=== PATIENT | male | born 1980 | race Caucasian/White ===

== ENCOUNTER 2023-11-29 04:02 | Inpatient (IN) ==
--- NOTE | 2023-11-29 04:51 | Emergency Department Note ---
Impression & Plan Perirectal cellulitis, Hyperglycemia due to type 2 diabetes mellitus Admit to the [facility] on IV antibiotics ED Provider Note NAME: BALJEET DOTSON AGE: 43 SEX: Male INFORMANT: Patient ED PROVIDER(S): Yazmin Corbett DO CHIEF COMPLAINT: Rectal pain PLAN: Disposition: Admit to the [facility] MEDICAL DECISION MAKING: This is a 43-year-old male patient presents to the emergency department with moderate to severe pain in the rectum with drainage coming from the wound about the rectum. Patient was diagnosed with diabetes approximately 5 years ago but has not had treatment for it since that time. Laboratory studies show a blood glucose of 369 but no significant leukocytosis. Hemoglobin is 13.5. Renal function is normal. Sodium is 134. Patient went for CT scan of the abdomen/pelvis to rule out perirectal abscess. No specific abscess was noted but the patient does have significant induration about the left buttocks, perirectal region and perineum consistent with significant cellulitis. Care/management discussed with: manager sales support and [facility] Triage Nursing notes: Reviewed and agree with them. Vital Signs: reviewed and remarkable for hypertension and tachycardia Chronic Medical/Social Conditions affecting care: Patient was diagnosed with diabetes approximately 5 years ago and only took treatment for a very short period of time and has not had any treatment for the diabetes since then. Differential Diagnosis: Pilonidal cyst, perirectal abscess, Joaquim's gangrene, cellulitis Diagnostics, independently interpreted by me: Cardiac Monitoring: Sinus tachycardia at 110 Imaging studies: CT scan of the abdomen/pelvis-as per stat rad HPI: 43 year old Male arrives for evaluation of rectal pain. Patient noted some pain about his rectum approximately 5 days ago. He then noticed some swelling to the left butt buttocks surrounding the rectum. He then noted that it popped and was draining to the point that he was having to change the dressing every 1- 2 hours. 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 Pupils are equal, round, and reactive to light. Extraocular eye muscles are intact, and sclera are anicteric. Nose - moist nasal mucosa without discharge. Mouth - moist buccal mucosa. Oropharynx is nonerythematous and there is no tonsillar exudate or edema noted. Neck: Supple; no cervical lymphadenopathy Heart: Tachycardic rate and regular rhythm. There is a normal S1 and S2 with no murmurs, clicks, or gallops appreciated. Lungs: Clear to auscultation bilaterally with no wheezes, rales, or rhonchi. Abdomen: Soft, completely nontender, nondistended, with good bowel sounds. There are no palpable pulsatile masses or hepatosplenomegaly. There is no guarding, rigidity, or rebound noted. Extremities: No evidence of cyanosis, clubbing, or edema. There are easily palpable peripheral pulses. Skin: warm and dry with good turgor and no rashes. Buttocks: Very large perirectal area of induration, warmth and erythema noted on the left buttocks extending about the rectum into the perineum to the base of the penis. I could not see a specific area of opening or drainage. Emergency department treatment: media monitor, IV normal saline bolus, IV Rocephin, IV Flagyl Emergency department course: Patient was evaluated in room B3 a complete history and physical was performed. An IV lock was initiated and labs were drawn as above. Blood cultures were obtained. An order was placed for continuous cardiac monitoring. The patient was in a sinus tachycardia at a rate of 110. The patient was bolused with IV normal saline solution once he was noted to be significantly hyperglycemic. He was given a dose of IV Rocephin and IV Flagyl. [facility] care. Past Med/Surg History Medical History T2DM (type 2 diabetes mellitus) Surgical History No pertinent past surgical history Family History Mother Diabetes Father Renal cell carcinoma Brother Diabetes MRSA (methicillin resistant Staphylococcus aureus) carrier Social History Smoking Status: Never smoker Hx Alcohol Use: No Hx Substance Use: No Preferred Language: Hungarian marital status: Single Current Living Situation: Alone current occupational status: employed current occupation: [employer], [employer] Feels Safe at Home: Yes Allergies Allergies Allergy/AdvReac Type Severity Reaction Status Date / Time No Known Allergies Allergy Verified 11/29/23 05:06 Home Meds Home Medications Medication Instructions Recorded Confirmed multivitamin 1 tab PO DAILY 11/29/23 11/29/23 Results & Data (ED) Vital Signs Vital Signs - 24 hr 11/29/23 04:05 11/29/23 05:05 11/29/23 05:06 Temperature 37 C Temperature Source Temporal Artery Scan Pulse Rate 110 H 104 H Pulse Rate [Finger] 102 H Pulse Rhythm [Finger] Pulse Strength [Finger] Respiratory Rate 18 16 Respiratory Effort / Characteristics Non-Labored Spontaneous Non-Labored Spontaneous Respiratory Depth Normal Normal Respiratory Pattern Regular Blood Pressure 207/107 H Blood Pressure [Left Arm] 198/111 H Blood Pressure Mean 140 Blood Pressure Mean [Left Arm] 140 Blood Pressure Position [Left Arm] Pulse Oximetry 100 100 Oxygen Delivery Method Room Air Room Air Sepsis Recent Fever Within 48 Hours No Sepsis New/Unexplained Change in Mental Status No Sepsis Action Taken by Nursing No Action Required 11/29/23 05:06 11/29/23 07:00 Temperature 37 C Temperature Source Temporal Artery Scan Pulse Rate Pulse Rate [Finger] 97 H Pulse Rhythm [Finger] Regular Pulse Strength [Finger] Normal Respiratory Rate 16 Respiratory Effort / Characteristics Non-Labored Spontaneous Respiratory Depth Normal Respiratory Pattern Regular Blood Pressure Blood Pressure [Left Arm] 186/108 H Blood Pressure Mean Blood Pressure Mean [Left Arm] 134 Blood Pressure Position [Left Arm] Lying Pulse Oximetry 100 Oxygen Delivery Method Room Air Room Air Sepsis Recent Fever Within 48 Hours Sepsis New/Unexplained Change in Mental Status Sepsis Action Taken by Nursing Laboratory Data 11/29/23 04:50 11/29/23 04:50 Lab Results 11/29/23 11/29/23 11/29/23 Range/Units 04:50 07:06 07:10 WBC 10.75 (4.8-10.8) K/ul RBC 4.56 L (4.70-6.10) M/uL Hgb 13.5 L (14.0-18.0) g/dl Hct 37.3 L (42.0-52.0) % MCV 81.8 (80.0-100.0) fL MCH 29.6 (25.0-34.0) pg MCHC 36.2 H (32.0-36.0) g/dL RDW Std Deviation 34.0 L (36.4-46.3) fL RDW Coeff of Rob 11.6 (11.5-14.5) % Plt Count 356 (130-400) K/uL MPV 9.8 (9.4-12.4) fL Immature Gran % (Auto) 0.5 % Neut % (Auto) 64.2 % Lymph % (Auto) 20.5 % [place] % (Auto) 11.3 % Eos % (Auto) 2.9 % Baso % (Auto) 0.6 % Neut # (Auto) 6.92 H (1.40-6.50) K/uL Lymph # (Auto) 2.20 (1.20-3.40) K/uL [place]lin # (Auto) 1.21 H (0.11-0.59) K/uL Eos # (Auto) 0.31 (0.00-0.50) K/uL Baso # (Auto) 0.06 (0.00-0.20) K/uL Immature Gran # (Auto) 0.05 (0.01-0.20) K/uL Sodium 134 L (136-145) mmol/L Potassium 4.0 (3.5-5.1) mmol/L Chloride 95 L (98-107) mmol/L Carbon Dioxide 27 (21-32) mmol/L Anion Gap 12 H (3-11) BUN 19 (6-23) mg/dl Creatinine 0.98 (0.6-1.4) mg/dl Est Cr Clr Drug Dosing 101.4 ml/min Est GFR ( Amer) 107.5 ml/min Est GFR (Non-Af Amer) 92.7 ml/min BUN/Creatinine Ratio 19.4 (10-20) Glucose 369 H* (70-99(Fasting)) mg/dl Lactate 1.3 (0.4-2.0) mmol/L Calcium 9.2 (8.6-10.3) mg/dl Total Bilirubin 0.3 (0.2-1.0) mg/dl AST 14 (13-39) U/L ALT 12 (7-52) U/L Alkaline Phosphatase 129 H (34-104) U/L Total Protein 7.8 (6.0-8.3) gm/dl Albumin 4.0 (3.4-5.0) gm/dl Globulin 3.8 (2.5-4.0) gm/dl Albumin/Globulin Ratio 1.1 (0.9-2) Lipase 18 (11-82) U/L Procalcitonin < 0.05 (0-0.5) ng/ml Urine Color Urine Appearance (Clear) Urine pH (4.5-7.5) Ur Specific [place] (1.000-1.030) Urine Protein (Negative) Urine Glucose (UA) (Negative) Urine Ketones (Negative) Urine Blood (Negative) Urine Nitrite (Negative) Urine Bilirubin (Negative) Urine Urobilinogen (Negative) Ur Leukocyte Esterase (Negative) Urine WBC (Auto) (0-5) /hpf Urine RBC (Auto) (0-4) /hpf U Hyaline Cast (Auto) (0-5) /lpf U Epithel Cells (Auto) (0-5) /lpf Urine Bacteria (Auto) (Negative) 11/29/23 Range/Units 08:20 WBC (4.8-10.8) K/ul RBC (4.70-6.10) M/uL Hgb (14.0-18.0) g/dl Hct (42.0-52.0) % MCV (80.0-100.0) fL MCH (25.0-34.0) pg MCHC (32.0-36.0) g/dL RDW Std Deviation (36.4-46.3) fL RDW Coeff of Rob (11.5-14.5) % Plt Count (130-400) K/uL MPV (9.4-12.4) fL Immature Gran % (Auto) % Neut % (Auto) % Lymph % (Auto) % [place] % (Auto) % Eos % (Auto) % Baso % (Auto) % Neut # (Auto) (1.40-6.50) K/uL Lymph # (Auto) (1.20-3.40) K/uL [place]lin # (Auto) (0.11-0.59) K/uL Eos # (Auto) (0.00-0.50) K/uL Baso # (Auto) (0.00-0.20) K/uL Immature Gran # (Auto) (0.01-0.20) K/uL Sodium (136-145) mmol/L Potassium (3.5-5.1) mmol/L Chloride (98-107) mmol/L Carbon Dioxide (21-32) mmol/L Anion Gap (3-11) BUN (6-23) mg/dl Creatinine (0.6-1.4) mg/dl Est Cr Clr Drug Dosing ml/min Est GFR ( Amer) ml/min Est GFR (Non-Af Amer) ml/min BUN/Creatinine Ratio (10-20) Glucose (70-99(Fasting)) mg/dl Lactate (0.4-2.0) mmol/L Calcium (8.6-10.3) mg/dl Total Bilirubin (0.2-1.0) mg/dl AST (13-39) U/L ALT (7-52) U/L Alkaline Phosphatase (34-104) U/L Total Protein (6.0-8.3) gm/dl Albumin (3.4-5.0) gm/dl Globulin (2.5-4.0) gm/dl Albumin/Globulin Ratio (0.9-2) Lipase (11-82) U/L Procalcitonin (0-0.5) ng/ml Urine Color Yellow Urine Appearance Clear (Clear) Urine pH 6.0 (4.5-7.5) Ur Specific [place] 1.044 H (1.000-1.030) Urine Protein 1+ H (Negative) Urine Glucose (UA) 3+ H (Negative) Urine Ketones 2+ H (Negative) Urine Blood 1+ H (Negative) Urine Nitrite Negative (Negative) Urine Bilirubin Negative (Negative) Urine Urobilinogen Negative (Negative) Ur Leukocyte Esterase Negative (Negative) Urine WBC (Auto) 1-5 (0-5) /hpf Urine RBC (Auto) 0-4 (0-4) /hpf U Hyaline Cast (Auto) 0 (0-5) /lpf U Epithel Cells (Auto) 5-10 H (0-5) /lpf Urine Bacteria (Auto) Negative (Negative) Administered Medications Lactated Ringer's (Lr) 1,000 mls @ 15 mls/hr IV .Q24H ABHIJIT Stop: 12/29/23 13:14 Last Infusion: 11/29/23 14:27 Dose: Infused Documented By: Admin: 11/29/23 13:07 Dose: 15 mls/hr Documented By: FIDEL Discontinued Medications Sodium Chloride (Nss) 1,000 mls @ 999 mls/hr IV .Q1H1M ONE Stop: 11/29/23 07:17 Last Infusion: 11/29/23 07:29 Dose: Infused Documented By: Admin: 11/29/23 06:31 Dose: 999 mls/hr Documented By: ALCIDES Ceftriaxone Sodium (Rocephin) 1,000 mg in 50 mls @ 100 mls/hr IV NOW STA Stop: 11/29/23 07:58 Last Infusion: 11/29/23 09:19 Dose: Infused Documented By: Admin: 11/29/23 08:18 Dose: 100 mls/hr Documented By: FEDERICO Metronidazole (Flagyl) 500 mg in 100 mls @ 100 mls/hr IV NOW STA; Protocol Stop: 11/29/23 08:28 Last Infusion: 11/29/23 09:19 Dose: Infused Documented By: Admin: 11/29/23 08:18 Dose: 100 mls/hr Documented By: FEDERICO Ciprofloxacin (Cipro / D5w) 400 mg in 200 mls @ 100 mls/hr IV NOW STA; Protocol Stop: 11/29/23 11:50 Last Infusion: 11/29/23 12:45 Dose: Infused Documented By: Admin: 11/29/23 10:29 Dose: 100 mls/hr Documented By: MIKE Ioversol (Optiray 320 500ml) 100 ml IV ONCE ONE Stop: 11/29/23 06:22 Last Admin: 11/29/23 06:21 Dose: 78 ml Documented By: CHANCE Labetalol HCl (Labetalol Hcl Iv 5 Mg/Ml 20ml) 10 mg IV NOW STA Stop: 11/29/23 08:39 Last Admin: 11/29/23 09:44 Dose: 10 mg Documented By: FEDERICO Co-signed By: KEN Imaging Data Radiologist's Impression: Abdomen/Pelvis CT 11/29/23 04:[address] WITH IV CONTRAST CT DOSE: 1183.94 mGy.cm HISTORY: Rectal pain. eval for large perirectal abscess TECHNIQUE: Multiaxial CT images of the abdomen and pelvis were performed following the use of intravenous contrast. A dose lowering technique was utilized adhering to the principles of ALARA. COMPARISON STUDY: None. FINDINGS: The lung bases are clear. No pneumoperitoneum. No pneumatosis. No acute fractures identified. The liver, gallbladder, pancreas, spleen, adrenal glands, and kidneys are unremarkable. No hydronephrosis. The main portal vein is patent. No retroperitoneal lymphadenopathy. Normal caliber abdominal aorta. No pelvic lymphadenopathy or pelvic free fluid. There is mild left inguinal lymphadenopathy which may be reactive. Trace bilateral hydroceles are noted. Mild bladder wall thickening for the degree of distention. The prostate gland is mildly enlarged. A few colonic diverticula. No evidence for acute diverticulitis. [id number] fecal retention. No bowel wall thickening or obstruction. Normal appendix. Skin thickening and subcutaneous fat stranding within the left perianal location consistent with a cellulitis. There is an ill- defined focus of subcutaneous fluid/edema within the left perianal location best seen on image 422 which measures 5.9 x 1.5 cm. This is not completely loculated and therefore favors a phlegmon/developing abscess. No evidence for supralevator extension. IMPRESSION: 1. Skin thickening and subcutaneous fat stranding within the left perianal location consistent with a cellulitis. There is an ill-defined focus of subcutaneous fluid/edema within the left perianal location best seen on image 422 which measures 5.9 x 1.5 cm. This is not completely loculated and therefore favors a phlegmon/developing abscess. No evidence for supralevator extension. 2. Mild left inguinal lymphadenopathy. This is likely reactive. 3. Mild bladder wall thickening. This could be due to chronic outlet obstruction. Recommend correlation with urinalysis to exclude a cystitis. ACT 112: Negative or not required by law. Electronically signed by: Luan De La Cruz M.D. 11/29/2023 7:12 AM Discharge Plan Visit Data Chief Complaint: Rectal Pain Stated Complaint: NAUSEA,HEADACHE,SICK,SKIN ABCESS GETTING WORSE ED Provider: Yazmin Corbett Discharge Problem: Perirectal cellulitis, Hyperglycemia due to type 2 diabetes mellitus Patient Disposition: Admitted As Inpatient Discharge Instructions Interventions: ED Discharge Assessment Last Done: 11/29/23 12:52 Discharge Problem: Hyperglycemia due to type 2 diabetes mellitus Qualifiers: Diabetes mellitus fpc insulin use: without youth agent use Qualified Code(s): E11.65 - Type 2 diabetes mellitus with hyperglycemia
[2023-11-29 05:19] LABS: Basophils # (auto) 0.06 K/uL (0.00-0.20); Basophils % (auto) 0.6 %; Eosinophils # (auto) 0.31 K/uL (0.00-0.50); Eosinophils % (auto) 2.9 %; Hematocrit (blood only) 37.3 % (42.0-52.0); Hemoglobin 13.5 g/dl (14.0-18.0); Immature Granulocytes # (auto) 0.05 K/uL (0.01-0.20); Immature Granulocytes % (auto) 0.5 %; Lymphocytes % (auto) 20.5 %; Mean Corpuscular Hemoglobin 29.6 pg (25.0-34.0); Mean Corpuscular Hgb Conc 36.2 g/dL (32.0-36.0); Mean Corpuscular Volume 81.8 fL (80.0-100.0); Mean Platelet Volume 9.8 fL (9.4-12.4); Monocytes # (auto) 1.21 K/uL (0.11-0.59); Monocytes % (auto) 11.3 %; Neutrophils # (auto) 6.92 K/uL (1.40-6.50); Neutrophils % (auto) 64.2 %; Platelet Count 356 K/uL (130-400); RDW Coefficient of Variation 11.6 % (11.5-14.5); Red Blood Count 4.56 M/uL (4.70-6.10); White Blood Count 10.75 K/ul (4.8-10.8)
[2023-11-29 05:48] LABS: Albumin Globulin Ratio 1.1 (0.9-2); BUN Creatinine Ratio 19.4 (10-20); Bilirubin,Total 0.3 mg/dl (0.2-1.0); Calcium 9.2 mg/dl (8.6-10.3); Creatinine Clr Calc Pharmacy 101.4 ml/min; Est GFR (African American) 107.5 ml/min; Est GFR (Non-African American) 92.7 ml/min; Globulin 3.8 gm/dl (2.5-4.0); Total Protein 7.8 gm/dl (6.0-8.3)
[2023-11-29] MEDS ORDERED: SODIUM CHLORIDE 0.9% 1,000 ML IV ONE ×2 (06:17→06:52)
[2023-11-29] MEDS ORDERED: OPTIRAY 320 500ml IV ONE (06:21)
--- NOTE | 2023-11-29 07:14 | CT Scan Report ---
ABDOMEN AND PELVIS CT WITH IV CONTRAST CT DOSE: 1183.94 mGy.cm HISTORY: Rectal pain. eval for large perirectal abscess TECHNIQUE: Multiaxial CT images of the abdomen and pelvis were performed following the use of intrave nous contrast. A dose lowering technique was utilized adhering to the principles of ALARA. COMPARISON STUDY: None. FINDINGS: The lung bases are clear. No pneumoperitoneum. No pneumatosis. No acute fractures identifie d. The liver, gallbladder, pancreas, spleen, adrenal glands, and kidneys are unremarkable. No hydrone phrosis. The main portal vein is patent. No retroperitoneal lymphadenopathy. Normal caliber abdominal aorta. No pelvic lymphadenopathy or pelvic free fluid. There is mild left inguinal lymphadenopathy w hich may be reactive. Trace bilateral hydroceles are noted. Mild bladder wall thickening for the degr ee of distention. The prostate gland is mildly enlarged. A few colonic diverticula. No evidence for a cute diverticulitis. [id number] fecal retention. No bowel wall thickening or obstruction. Judit l appendix. Skin thickening and subcutaneous fat stranding within the left perianal location consiste nt with a cellulitis. There is an ill-defined focus of subcutaneous fluid/edema within the left peria nal location best seen on image 422 which measures 5.9 x 1.5 cm. This is not completely loculated and therefore favors a phlegmon/developing abscess. No evidence for supralevator extension. IMPRESSION: 1. Skin thickening and subcutaneous fat stranding within the left perianal location consistent with a cellulitis. There is an ill-defined focus of subcutaneous fluid/edema within the left perianal locat ion best seen on image 422 which measures 5.9 x 1.5 cm. This is not completely loculated and therefor e favors a phlegmon/developing abscess. No evidence for supralevator extension. 2. Mild left inguinal lymphadenopathy. This is likely reactive. 3. Mild bladder wall thickening. This could be due to chronic outlet obstruction. Recommend correlati on with urinalysis to exclude a cystitis. ACT 112: Negative or not required by law. Electronically signed by: Luan De La Cruz M.D. 11/29/2023 7:12 AM
[2023-11-29] MEDS ORDERED: cefTRIAXone SODIUM 1,000 MG/50 ML BAG IV STA (07:29)
[2023-11-29] MEDS ORDERED: metroNIDAZOLE 500 MG/100 ML BAG IV STA (07:29)
[2023-11-29] MEDS ORDERED: LABETALOL HCL IV 5 MG/ML 20ML IV STA (08:38)
--- NOTE | 2023-11-29 08:38 | History & Physical Report ---
Date of Service November 29, 2023 Assessment & Plan (1) Kristin-rectal abscess: (2) T2DM (type 2 diabetes mellitus): (3) HTN (hypertension): Plan This is a 43-year-old male who has significant past medical history of T2DM who presents to ED secondary to rectal abscess x 5 days. He has not seen a primary care provider in the last 5 years. Perirectal abscess Admit to med telemetry secondary to uncontrolled blood pressure --CT a/p: Skin thickening and subcutaneous fat stranding within the left perianal location consistent with a cellulitis. There is an ill-defined focus of subcutaneous fluid/edema within the left perianal location best seen on image 422 which measures 5.9 x 1.5 cm. This is not completely loculated and therefore favors a phlegmon/developing abscess. No evidence for supralevator extension. Consult general surgery Will remain n.p.o. 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 DVT ppx: encourage ambulation FULL CODE PCP: Pt needs to establish with PCP @ [place] Dispo: admit to med tele, likely to remain hospitalized 1-2 days Pt was seen and examined in collaboration with Dr. Cardozo, please see addendum A total of 81 was spent coordinating, documenting, and providing care for this patient excluding time spent in the performance of separately billed services. This included personally viewing all current laboratories and imaging studies, medication reconciliation, outpatient chart review, and discussion with specialists. History of Present Illness Chief Complaint: Rectal abscess x 5 days. Primary Care Provider: Reid Buchanan DO This is a 43-year-old male who has significant past medical history of T2DM who presents to ED secondary to rectal abscess x 5 days. He has not seen a primary care provider in the last 5 years. He states he was diagnosed with borderline diabetes back in 2014. At that point he was placed on Farxiga and later on he was switched over to Jardiance for insurance purposes. He has been without medication since 2019 secondary to lack of insurance. He recently has insurance and is scheduled to see primary care provider at [facility] in the near future. He states approximately 1 week ago he started to notice a pimple/lump in the right side of his rectal area. This lump continued to grow, get larger and more painful. 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 He has been putting gauze back there since then that is been frequently getting saturated. He states the fluid is clear and odorless. Due to the persistence of symptoms he opted to come to ED for further evaluation. He denies ever having anything like this in the past. He denies any fever, chills, sweats, lightheadedness, dizziness, chest pain, shortness of breath, nausea, vomiting or abdominal pain. His appetite has otherwise been stable. He has had nothing to eat or drink today. He does not take any medications on a regular basis. He also has never had any surgeries in the past. 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 Allergies Allergy/AdvReac Type Severity Reaction Status Date / Time No Known Allergies Allergy Verified 11/29/23 05:06 Home Medications Medication Instructions Recorded Confirmed Type multivitamin 1 tab PO DAILY 11/29/23 11/29/23 History Past Med/Surg History Medical History T2DM (type 2 diabetes mellitus) Surgical History (Updated 11/29/23 @ 08:34 by Tania Durbin PA-C) No pertinent past surgical history Family History (Updated 11/29/23 @ 08:36 by Tania Durbin PA-C) Mother Diabetes Father Renal cell carcinoma Brother Diabetes MRSA (methicillin resistant Staphylococcus aureus) carrier Social History (Updated 11/29/23 @ 08:34 by Tania Durbin PA-C) Smoking Status: Never smoker Hx Alcohol Use: No Hx Substance Use: No Preferred Language: German marital status: Single Current Living Situation: Alone current occupational status: employed 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 Normal insp/exp effort, no accessory muscle use Cardiovascular: RRR, no murmur, no edema Vessels: no JVD or carotid bruit Chest: normal inspection of chest Abdomen: Protuberant abdomen normal bowel sounds, soft, nontender, no hepatosplenomegaly Musculoskeletal: no cyanosis or clubbing, extremities motor strength 5/5 Skin: no rashes, warm and dry normal turgor Neurologic: PERRL, EOMI, accommodation nl, no face palsy, no dysarthria CN's II-XI intact bilaterally and moves all extremities Psychiatric: A+Ox3, euthymic affect Lymphatic: no cervical or axillary lymphadenopathy : Red, warm and indurated area of erythema on the left buttock extending to base of penis with central area that is draining Results & Data Results & Data Vital Signs (Past 12 Hours) Vital Signs Temp Pulse Pulse Resp BP BP Pulse Ox 11/29/23 07:00 37 C 97 H 16 186/108 H 100 11/29/23 05:06 11/29/23 05:06 102 H 16 198/111 H 100 11/29/23 05:05 104 H 11/29/23 04:05 37 C 110 H 18 207/107 H 100 O2 Del Method 11/29/23 07:00 Room Air 11/29/23 05:06 Room Air 11/29/23 05:06 Room Air 11/29/23 05:05 11/29/23 04:05 Room Air Laboratory Results I have independently reviewed and interpreted patient's admitting labs including CBC, CMP, procal, lipase, lactate. Diagnostic Findings Abdomen/Pelvis CT 11/29/23 04:[address] WITH IV CONTRAST CT DOSE: 1183.94 mGy.cm HISTORY: Rectal pain. eval for large perirectal abscess TECHNIQUE: Multiaxial CT images of the abdomen and pelvis were performed following the use of intravenous contrast. A dose lowering technique was utilized adhering to the principles of ALARA. COMPARISON STUDY: None. FINDINGS: The lung bases are clear. No pneumoperitoneum. No pneumatosis. No acute fractures identified. The liver, gallbladder, pancreas, spleen, adrenal glands, and kidneys are unremarkable. No hydronephrosis. The main portal vein is patent. No retroperitoneal lymphadenopathy. Normal caliber abdominal aorta. No pelvic lymphadenopathy or pelvic free fluid. There is mild left inguinal lymphadenopathy which may be reactive. Trace bilateral hydroceles are noted. Mild bladder wall thickening for the degree of distention. The prostate gland is mildly enlarged. A few colonic diverticula. No evidence for acute diverticulitis. [id number]-nd-uenedrrz fecal retention. No bowel wall thickening or obstruction. Normal appendix. Skin thickening and subcutaneous fat stranding within the left perianal location consistent with a cellulitis. There is an ill- defined focus of subcutaneous fluid/edema within the left perianal location best seen on image 422 which measures 5.9 x 1.5 cm. This is not completely loculated and therefore favors a phlegmon/developing abscess. No evidence for supralevator extension. IMPRESSION: 1. Skin thickening and subcutaneous fat stranding within the left perianal location consistent with a cellulitis. There is an ill-defined focus of subcutaneous fluid/edema within the left perianal location best seen on image 422 which measures 5.9 x 1.5 cm. This is not completely loculated and therefore favors a phlegmon/developing abscess. No evidence for supralevator extension. 2. Mild left inguinal lymphadenopathy. This is likely reactive. 3. Mild bladder wall thickening. This could be due to chronic outlet obstruction. Recommend correlation with urinalysis to exclude a cystitis. ACT 112: Negative or not required by law. Electronically signed by: Luan De La Cruz M.D. 11/29/2023 7:12 AM Medications Administered Medication List Discontinued Medications Sodium Chloride (Nss) 1,000 mls @ 999 mls/hr IV .Q1H1M ONE Stop: 11/29/23 07:17 Last Infusion: 11/29/23 07:29 Dose: Infused Documented By: Admin: 11/29/23 06:31 Dose: 999 mls/hr Documented By: ALCIDES Ceftriaxone Sodium (Rocephin) 1,000 mg in 50 mls @ 100 mls/hr IV NOW STA Stop: 11/29/23 07:58 Last Infusion: 11/29/23 09:19 Dose: Infused Documented By: Admin: 11/29/23 08:18 Dose: 100 mls/hr Documented By: FEDERICO Metronidazole (Flagyl) 500 mg in 100 mls @ 100 mls/hr IV NOW STA; Protocol Stop: 11/29/23 08:28 Last Infusion: 11/29/23 09:19 Dose: Infused Documented By: Admin: 11/29/23 08:18 Dose: 100 mls/hr Documented By: FEDERICO Ioversol (Optiray 320 500ml) 100 ml IV ONCE ONE Stop: 11/29/23 06:22 Last Admin: 11/29/23 06:21 Dose: 78 ml Documented By: CHANCE COVID-19 Results Results COVID-19 Adm Lab Results: RBC 4.56 M/uL (4.70-6.10) L 11/29/23 WBC 10.75 K/ul (4.8-10.8) 11/29/23 Hgb 13.5 g/dl (14.0-18.0) L 11/29/23 Hct 37.3 % (42.0-52.0) L 11/29/23 Plt Count 356 K/uL (130-400) 11/29/23 Neutrophils (%) (Auto) 64.2 % 11/29/23 Lymphocytes (%) (Auto) 20.5 % 11/29/23 Monocytes # (Auto) 1.21 K/uL (0.11-0.59) H 11/29/23 Eosinophils # (Auto) 0.31 K/uL (0.00-0.50) 11/29/23 Immature Granulocyte % (Auto) 0.5 % 11/29/23 Neutrophils # (Auto) 6.92 K/uL (1.40-6.50) H 11/29/23 Lymphocytes # (Auto) 2.20 K/uL (1.20-3.40) 11/29/23 Monocytes # (Auto) 1.21 K/uL (0.11-0.59) H 11/29/23 Eosinophils # (Auto) 0.31 K/uL (0.00-0.50) 11/29/23 Basophils # (Auto) 0.06 K/uL (0.00-0.20) 11/29/23 Immature Granulocyte # (Auto) 0.05 K/uL (0.01-0.20) 4 Na 134 mmol/L (136-145) L 11/29/23 K 4.0 mmol/L (3.5-5.1) 11/29/23 Cl 95 mmol/L (98-107) L 11/29/23 CO2 27 mmol/L (21-32) 11/29/23 Anion Gap 12 (3-11) H 11/29/23 BUN 19 mg/dl (6-23) 11/29/23 Creatinine 0.98 mg/dl (0.6-1.4) 11/29/23 BUN/Creatinine Ratio 19.4 (10-20) 11/29/23 Glucose Level 369 mg/dl (70-99(Fasting)) H* 11/29/23 Ca 9.2 mg/dl (8.6-10.3) 11/29/23 Total Bilirubin 0.3 mg/dl (0.2-1.0) 11/29/23 AST/SGOT 14 U/L (13-39) 11/29/23 ALT/SGPT 12 U/L (7-52) 11/29/23 Alkaline Phosphatase 129 U/L (34-104) H 11/29/23 Total Protein 7.8 gm/dl (6.0-8.3) 11/29/23 Albumin 4.0 gm/dl (3.4-5.0) 11/29/23 Globulin 3.8 gm/dl (2.5-4.0) 11/29/23 Albumin/Globulin Ratio 1.1 (0.9-2) 11/29/23 Procalcitonin < 0.05 ng/ml (0-0.5) 11/29/23 Code Status & VTE Plan Code Status FULL CODE VTE Prophylaxis Plan VTE Prophylaxis will be ordered: No Supervising Physician Co-Signing Physician Notes I obtained history and examined patient. 43 year old man with DM2 who has been off antidiabetics/has not seen a Dr in a few years who present with left buttock lump/swelling for past 6 days. Associated with chills only. Started draining about 3 days ago, yellowish drainage Exam notable for elevated BP (182/111), left buttock/perianal swelling, indurated, erythematous area with some oozing. Labs notable for Hb 13.5, Glucose 369. Normal WBC/lactate/procal Abd CT noted 5.9x1.5cm left perianal collection. Left Perirectal abscess Poorly controlled diabetes mellitus Counseled patient regarding need for optimal glycemic control Stated he was assigned a PCP yesterday for a January appt. Attending Provider will have to ensure earlier appt is made prior to dc Start insulin subcut protocol while inpt to optimize control Get A1c Will need to be started on antidiabetic regimen on dc Got ceftriaxone and flagyl in ER Start IV cipro and flagyl Discussed with Surgeon Dr Sellers who was consulted. Plan for I&D of abscess later today Will keep NPO till then IVF for now BP is elevated. Possible elevated BP vs undiagnosed HTN Getting labetalol. Will monitor BP. If still elevated, start lisinopril and monitor I agree with plans as detailed by Tania Durbin PA-C I spent a total of 40 minutes coordinating, documenting and providing care for this patient excluding time spent in performance of separately billed services
[2023-11-29] MEDS ORDERED: CIPROFLOXACIN / D5W 400 MG/200 ML BAG IV STA (09:51)
--- NOTE | 2023-11-29 10:55 | History & Physical Report ---
Date of Service November 29, 2023 Assessment & Plan (1) Kristin-rectal abscess: Plan 43-year-old gentleman with a large perirectal abscess. I discussed the risks and benefits of incision and drainage of the perirectal abscess in the operating room under sedation. All his questions were answered, he is agreeable to proceed. Consent will be obtained. We will take him to the operating room at the earliest convenience. In the meantime, he will be placed on IV fluids and antibiotics. History of Present Illness Primary Care Provider: Reid Buchanan DO 43-year-old gentleman presents with a 5-day history of increasing pain and redness of his left buttock. He has had some drainage from this area. He does have chills. He denies nausea or vomiting. He is having normal bowel movements. He denies chest pain or shortness of breath. Allergies Allergy/AdvReac Type Severity Reaction Status Date / Time No Known Allergies Allergy Verified 11/29/23 05:06 Home Medications Medication Instructions Recorded Confirmed Type multivitamin 1 tab PO DAILY 11/29/23 11/29/23 History Past Med/Surg History Medical History T2DM (type 2 diabetes mellitus) Surgical History No pertinent past surgical history Family History Mother Diabetes Father Renal cell carcinoma Brother Diabetes MRSA (methicillin resistant Staphylococcus aureus) carrier Social History Smoking Status: Never smoker Hx Alcohol Use: No Hx Substance Use: No Preferred Language: German marital status: Single Current Living Situation: Alone current occupational status: employed current occupation: [employer], [employer] Feels Safe at Home: Yes Review of Systems Review of Systems: All systems reviewed & are unremarkable except as noted in HPI & below Physical Exam Constitutional: WD/WN, vitals as above Eyes: PERRL, conjunctivae normal, anicteric sclerae Neck: trachea midline, no thyromegaly Respiratory: normal respiratory effort; no respiratory distress and no labored breathing Cardiovascular: Rate/Rhythm: regular rate and regular rhythm Gastrointestinal (Abdomen): Inspection/Auscultation: abdomen normal to inspection; abdomen not distended Percussion/Palpation: abdomen soft; abdomen nontender Gluteal cleft: Large area of induration, erythema, fluctuance of the left buttock extending to the anal verge Skin: no rashes, warm and dry Psychiatric: A+Ox3, euthymic affect Results & Data Results & Data Vital Signs (Past 12 Hours) Vital Signs Temp Pulse Pulse Resp BP BP Pulse Ox 11/29/23 10:30 88 164/92 H 11/29/23 09:58 36.9 C 86 18 163/99 H 100 11/29/23 09:44 94 H 182/111 H 11/29/23 09:31 100 H 11/29/23 09:00 37 C 97 H 16 182/111 H 100 11/29/23 07:00 37 C 97 H 16 186/108 H 100 11/29/23 05:06 11/29/23 05:06 102 H 16 198/111 H 100 11/29/23 05:05 104 H 11/29/23 04:05 37 C 110 H 18 207/107 H 100 O2 Del Method 11/29/23 10:30 11/29/23 09:58 Room Air 11/29/23 09:44 11/29/23 09:31 11/29/23 09:00 Room Air 11/29/23 07:00 Room Air 11/29/23 05:06 Room Air 11/29/23 05:06 Room Air 11/29/23 05:05 11/29/23 04:05 Room Air Laboratory Results 11/29/23 11/29/23 11/29/23 Range/Units 07:10 07:06 04:50 WBC 10.75 (4.8-10.8) K/ul RBC 4.56 L (4.70-6.10) M/uL Hgb 13.5 L (14.0-18.0) g/dl Hct 37.3 L (42.0-52.0) % MCV 81.8 (80.0-100.0) fL MCH 29.6 (25.0-34.0) pg MCHC 36.2 H (32.0-36.0) g/dL RDW Std Deviation 34.0 L (36.4-46.3) fL RDW Coeff of Rob 11.6 (11.5-14.5) % Plt Count 356 (130-400) K/uL MPV 9.8 (9.4-12.4) fL Immature Gran % (Auto) 0.5 % Neut % (Auto) 64.2 % Lymph % (Auto) 20.5 % [place] % (Auto) 11.3 % Eos % (Auto) 2.9 % Baso % (Auto) 0.6 % Neut # (Auto) 6.92 H (1.40-6.50) K/uL Lymph # (Auto) 2.20 (1.20-3.40) K/uL [place] # (Auto) 1.21 H (0.11-0.59) K/uL Eos # (Auto) 0.31 (0.00-0.50) K/uL Baso # (Auto) 0.06 (0.00-0.20) K/uL Immature Gran # (Auto) 0.05 (0.01-0.20) K/uL Sodium 134 L (136-145) mmol/L Potassium 4.0 (3.5-5.1) mmol/L Chloride 95 L (98-107) mmol/L Carbon Dioxide 27 (21-32) mmol/L Anion Gap 12 H (3-11) BUN 19 (6-23) mg/dl Creatinine 0.98 (0.6-1.4) mg/dl Est Cr Clr Drug Dosing 101.4 ml/min Est GFR ( Amer) 107.5 ml/min Est GFR (Non-Af Amer) 92.7 ml/min BUN/Creatinine Ratio 19.4 (10-20) Glucose 369 H* (70-99(Fasting)) mg/dl Lactate 1.3 (0.4-2.0) mmol/L Calcium 9.2 (8.6-10.3) mg/dl Total Bilirubin 0.3 (0.2-1.0) mg/dl AST 14 (13-39) U/L ALT 12 (7-52) U/L Alkaline Phosphatase 129 H (34-104) U/L Total Protein 7.8 (6.0-8.3) gm/dl Albumin 4.0 (3.4-5.0) gm/dl Globulin 3.8 (2.5-4.0) gm/dl Albumin/Globulin Ratio 1.1 (0.9-2) Lipase 18 (11-82) U/L Procalcitonin < 0.05 (0-0.5) ng/ml Diagnostic Findings ABDOMEN AND PELVIS CT WITH IV CONTRAST CT DOSE: 1183.94 mGy.cm HISTORY: Rectal pain. eval for large perirectal abscess TECHNIQUE: Multiaxial CT images of the abdomen and pelvis were performed following the use of intravenous contrast. A dose lowering technique was utilized adhering to the principles of ALARA. COMPARISON STUDY: None. FINDINGS: The lung bases are clear. No pneumoperitoneum. No pneumatosis. No acute fractures identified. The liver, gallbladder, pancreas, spleen, adrenal glands, and kidneys are unremarkable. No hydronephrosis. The main portal vein is patent. No retroperitoneal lymphadenopathy. Normal caliber abdominal aorta. No pelvic lymphadenopathy or pelvic free fluid. There is mild left inguinal lymphadenopathy which may be reactive. Trace bilateral hydroceles are noted. Mild bladder wall thickening for the degree of distention. The prostate gland is mildly enlarged. A few colonic diverticula. No evidence for acute diverticulitis. Loqm-wn-qugtgvly fecal retention. No bowel wall thickening or obstruction. Normal appendix. Skin thickening and subcutaneous fat stranding within the left perianal location consistent with a cellulitis. There is an ill-defined focus of subcutaneous fluid/edema within the left perianal location best seen on image 422 which measures 5.9 x 1.5 cm. This is not completely loculated and therefore favors a phlegmon/developing abscess. No evidence for supralevator extension. IMPRESSION: 1. Skin thickening and subcutaneous fat stranding within the left perianal location consistent with a cellulitis. There is an ill-defined focus of subcutaneous fluid/edema within the left perianal location best seen on image 422 which measures 5.9 x 1.5 cm. This is not completely loculated and therefore favors a phlegmon/developing abscess. No evidence for supralevator extension. 2. Mild left inguinal lymphadenopathy. This is likely reactive. 3. Mild bladder wall thickening. This could be due to chronic outlet obstruction. Recommend correlation with urinalysis to exclude a cystitis. ACT 112: Negative or not required by law. Electronically signed by: Luan De La Cruz M.D. 11/29/2023 7:12 AM Code Status & VTE Plan VTE Prophylaxis Plan VTE Prophylaxis will be ordered: No
[2023-11-29] MEDS ORDERED: LACTATED RINGER'S 1,000 ML IV SCH ×2 (13:15→19:00)
--- NOTE | 2023-11-29 13:33 | Anesthesiology Consultation ---
Date of Service November 29, 2023 Assessment & Plan (1) Encounter for pre-operative examination: Chart Review Chart Review: Acceptable Risk for Surgery and Patient NOT seen in Pre Admission Testing Consults Requested none Additional Notes BS elevated in 300s upon arrival to ED, recheck in mid 200s in preop, given precipitous drop will defer insulin administration, plan to recheck in recovery. History Surgery Operation Date: 11/29/23 08:05 Proposed Procedures p Incision and Drainage Perirectal Abscess - Cesar Sellers MD Height/Weight Height: 5 ft 11 in Weight: 84 kg Allergies Allergy/AdvReac Type Severity Reaction Status Date / Time No Known Allergies Allergy Verified 11/29/23 05:06 Medications Home Medications Medication Instructions Recorded Confirmed Last Taken multivitamin 1 tab PO DAILY 11/29/23 11/29/23 Unknown Active Medications Generic Name Dose Route Start Last Admin Trade Name Freq PRN Reason Stop Dose Admin Lactated Ringer's 1,000 mls @ 15 mls/hr 11/29/23 13:15 11/29/23 13:07 Lr IV 12/29/23 13:14 15 mls/hr .Q24H ABHIJIT Administration NPO Date Last Intake of Fluids: 11/29/23 Time Last Intake of Fluids: 04:00 Date Last Intake of Solids: 11/27/23 Time Last Intake of Solids: 17:00 Past Medical History Medical History T2DM (type 2 diabetes mellitus) Past Family History Family History Mother Diabetes Father Renal cell carcinoma Brother Diabetes MRSA (methicillin resistant Staphylococcus aureus) carrier Past Surgical History Surgical History No pertinent past surgical history Social History Smoking Status: Never smoker Hx Alcohol Use: No Hx Substance Use: No Physical Exam Vital Signs Last Vital Signs Temp 98.6 F 11/29/23 12:56 Pulse 94 H 11/29/23 12:56 Resp 16 11/29/23 12:56 BP 192/107 H 11/29/23 12:56 Pulse Ox 98 11/29/23 12:56 O2 Del Method Room Air 11/29/23 12:56 Testing Laboratory Results 11/29/23 04:50 11/29/23 04:50 11/29/23 13:14 POC Glucose 265 H
[2023-11-29] MEDS ORDERED: ePHEDrine sulfate 50 MG/ML AMP IV PRN (13:34)
[2023-11-29] MEDS ORDERED: fentaNYL citrate PF 100 MCG/2 ML VIAL IV PRN (13:34)
[2023-11-29] MEDS ORDERED: ATROPINE SULFATE 0.1 MG/ML 10ML SYR IV PRN (13:34)
[2023-11-29] MEDS ORDERED: ONDANSETRON INJ 2 MG/ML 2 ML VIAL IV PRN ×2 (13:34→16:53)
[2023-11-29] MEDS ORDERED: MIDAZOLAM HCL 1 MG/ML 2ML VIAL ONE (13:37)
[2023-11-29] MEDS ORDERED: fentaNYL citrate PF 100 MCG/2 ML VIAL ONE ×2 (13:38→14:51)
[2023-11-29] MEDS ORDERED: KETOROLAC 30 MG/ML VIAL ONE (13:42)
[2023-11-29] MEDS ORDERED: LIDOCAINE 1%/EPINEPHRINE 1:100,000 20 ML VIAL ONE (14:37)
[2023-11-29] MEDS ORDERED: ONDANSETRON INJ 2 MG/ML 2 ML VIAL ONE (14:40)
[2023-11-29] MEDS ORDERED: PROPOFOL IV EMULSION 10 MG/ML 20 ML VIAL IV ONE (14:40)
--- NOTE | 2023-11-29 14:58 | Post Operative Brief Note ---
Immediate Post Op Note v1 Date of Surgery November 29, 2023 Pre & Post Diagnosis Operation Date: 11/29/23 08:05 Preop diagnosis: Perirectal abscess Postop diagnosis: Same I identified the patient and participated in the time-out.: Yes Procedure Operation Date: 11/29/23 08:05 Incision and drainage of perirectal abscess Surgeon Cesar Sellers MD Displayer None Estimated Blood Loss 5 Findings Consistent with Post-Op Diagnosis
--- NOTE | 2023-11-29 15:00 | Operative Report ---
Post Operative Report Pre & Post Diagnosis Operation Date: 11/29/23 08:05 Preop diagnosis: Perirectal abscess Postop diagnosis: Same I identified the patient and participated in the time-out.: Yes Procedure Operation Date: 11/29/23 08:05 Incision and drainage of perirectal abscess Surgeon Cesar Sellers MD Synthetic Cloth Binding Cutter None Estimated Blood Loss 5 Findings Consistent with Post-Op Diagnosis Specimens None Drains None Anesthesia Type MAC Complications None Description of Procedure Patient was taken to the operating room, placed supine on the operating table. A timeout was performed, perioperative antibiotics were administered, SCD boots were placed. After adequate anesthesia and analgesia was obtained, he was placed in lithotomy position, and the area was prepped and draped in the normal sterile fashion. Local anesthetic was injected into and around the area of maximal induration and fluctuance. A cruciate incision was made with a 15 blade scalpel into the abscess cavity. A moderate amount of purulent fluid was returned. The cavity was explored with a hemostat and loculations were broken up. It was irrigated with saline. Half-inch packing was placed. Dressings were applied. He tolerated the procedure without complication, was transferred in stable condition to the PACU. All instrument, needle, sponge counts were correct at the end of the case. I attest to the content of the Intraoperative Record and any orders documented therein. Any exceptions are noted below.
--- NOTE | 2023-11-29 15:43 | Anesthesiology Progress Note ---
Date of Service November 29, 2023 Anesthesia Post Procedure Vital Signs Vital Signs: Temp Pulse Pulse Pulse Resp BP BP 11/29/23 15:25 85 12 153/89 H 11/29/23 15:15 90 16 149/94 H 11/29/23 15:06 36.3 C L 91 H 16 149/92 H 11/29/23 12:56 37 C 94 H 16 192/107 H 11/29/23 12:52 36.9 C 88 18 153/89 H 11/29/23 11:56 36.9 C 86 18 166/90 H 11/29/23 10:30 88 164/92 H 11/29/23 09:58 36.9 C 86 18 163/99 H 11/29/23 09:44 94 H 182/111 H 11/29/23 09:31 100 H 11/29/23 09:00 37 C 97 H 16 182/111 H 11/29/23 07:00 37 C 97 H 16 186/108 H 11/29/23 05:06 11/29/23 05:06 102 H 16 198/111 H 11/29/23 05:05 104 H 11/29/23 04:05 37 C 110 H 18 207/107 H Pulse Ox O2 Del Method 11/29/23 15:25 96 Room Air 11/29/23 15:15 97 Room Air 11/29/23 15:06 97 Room Air 11/29/23 12:56 98 Room Air 11/29/23 12:52 100 Room Air 11/29/23 11:56 100 Room Air 11/29/23 10:30 11/29/23 09:58 100 Room Air 11/29/23 09:44 11/29/23 09:31 11/29/23 09:00 100 Room Air 11/29/23 07:00 100 Room Air 11/29/23 05:06 Room Air 11/29/23 05:06 100 Room Air 11/29/23 05:05 11/29/23 04:05 100 Room Air Transfer of Care Handoff Completed per policy Notes Mental Status: alert / awake / arousable Patient Amnestic to Procedure: Yes Nausea / Vomiting: adequately controlled Pain: adequately controlled Airway Patency, RR, SpO2: stable & adequate BP & HR: stable & adequate Hydration State: stable & adequate Anesthetic Complications: no major complications apparent
[2023-11-29 16:02] LABS: Appearance Urine Clear (Clear); Bacteria Urine Automated Negative (Negative); Bilirubin Urine Negative (Negative); Blood Urine 1+ (Negative); Cast Urine Automated 0 /lpf (0-5); Color Urine Yellow; Glucose Urine UA 3+ (Negative); Ketones Urine 2+ (Negative); Leukocyte Esterase Urine Negative (Negative); Nitrite Urine Negative (Negative); Protein Urine 1+ (Negative); RBC Urine Automated 0-4 /hpf (0-4); Specific Gravity Urine 1.044 (1.000-1.030); Urobilinogen Urine Negative (Negative)
[2023-11-29] MEDS ORDERED: ALUMINUM/MAGNESIUM SUSP 30 ML UDC PO PRN (16:53)
[2023-11-29] MEDS ORDERED: ACETAMINOPHEN 325 MG TAB PO PRN (16:53)
[2023-11-29] MEDS ORDERED: PHARMACY GLYCEMIC MGMT CONSULT PRN (16:53)
[2023-11-29] MEDS ORDERED: MAGNESIUM HYDROXIDE SUSP 30 ML UDC PO PRN (16:53)
[2023-11-29] MEDS ORDERED: CARBOHYDRATES FOR HYPOGLYCEMIA PO PRN (16:53)
[2023-11-29] MEDS ORDERED: GLUCOSE 10 TAB/TUBE PO PRN (16:53)
[2023-11-29] MEDS ORDERED: GLUCOSE 40% GEL 15 GM TUBE PO PRN (16:53)
[2023-11-29] MEDS ORDERED: DEXTROSE 50% 50 ML SYRINGE IV PRN (16:53)
[2023-11-29] MEDS ORDERED: POLYETHYLENE (MIRALAX) 17 GM PACK PO PRN (16:53)
[2023-11-29] MEDS ORDERED: GLUCAGON FOR INJ 1 MG VIAL SQ PRN (16:53)
--- NOTE | 2023-11-29 17:07 | Pharmacy Report ---
Pharmacy Glycemic Short Note 2 - Date of Service November 29, 2023 - Glycemic Short BSG Results (Last 24 hours): 11/29/23 11/29/23 11/29/23 04:50 13:14 15:10 Glucose 369 H* POC Glucose 265 H 263 H 11/29/23 16:47 Glucose POC Glucose 268 H OUTPATIENT ANTIDIABETIC REGIMEN: * A1c pending * previously on Farxiga, then switched to Jardiance for insurance purposes, has been off medications since 2019 due to lack of insurance ASSESSMENT: * 43-year-old male, PMH of T2DM, presents to ED for rectal abscess x 5 days. He has not seen a primary care provider in the last 5 years, s/p surgery, no steroids. * Begin basal bolus insulin, titrate to goal blood sugar. * Consulting perinatal educator, will need close OP f/u and likely initiation of metformin at discharge. PLAN FOR INPATIENT GLYCEMIC CONTROL: * Basal insulin * Lantus 0-14 units SQ BID based on blood sugar * Bolus insulin * NovoLog per scale ACHS or Q6hrs while NPO * Goal Range: Low 110 mg/dL - High 140 mg/dL * Correction Factor: 30 mg/dL/unit * Nutritional / Prandial insulin per carb ratio of 1 unit per 9 grams CHO consumed
[2023-11-29] MEDS: metroNIDAZOLE 500 MG/100 ML BAG IV SCH (17:33)
[2023-11-29] MEDS: SACCHAROMYCES BOULARDII 250 MG CAP PO SCH (17:33)
[2023-11-29] MEDS: INSULIN ASPART PER UNIT CHARGE SC SCH ×2 (17:59→21:41)
[2023-11-29] MEDS: LANTUS PER UNIT CHARGE SQ SCH (17:59)
[2023-11-29] MEDS: CIPROFLOXACIN / D5W 400 MG/200 ML BAG IV SCH (21:41)
[2023-11-30] MEDS: metroNIDAZOLE 500 MG/100 ML BAG IV SCH ×3 (01:12→17:36)
--- NOTE | 2023-11-30 06:59 | Hospitalist Progress Note ---
Date of Service November 30, 2023 Assessment & Plan (1) Helen-rectal abscess: (2) T2DM (type 2 diabetes mellitus): (3) HTN (hypertension): Plan 43-year-old male who has significant past medical history of T2DM who presents to ED secondary to rectal abscess x 5 days. He has not seen a primary care provider in the last 5 years. Perirectal abscess Admitted to med telemetry secondary to uncontrolled blood pressure --CT a/p: Skin thickening and subcutaneous fat stranding within the left perianal location consistent with a cellulitis. There is an ill-defined focus of subcutaneous fluid/edema within the left perianal location best seen on image 422 which measures 5.9 x 1.5 cm. This is not completely loculated and therefore favors a phlegmon/developing abscess. No evidence for supralevator extension. Consulted general surgery - pt s/p I&D on 11/29/23 Continue IV antibiotic coverage with IV Cipro 40 mg every 12 hours and IV Flagyl 500 mg every 8 hours Blood cultx - pending Obtain wound culture if able give gentle fluid while NPO T2DM, uncontrolled Current Hgb A1c 11.9% -previously on farxiga, then switched to jardiance for insurance purposes has been off meds since 2019 due to lack of insurance place on lantus/novolog while hospitalized consult diamond sizer and sorter will need close OP f/u and likely initiation of metformin at discharge HTN pt BP significantly elevated in ED, likely partially situational/pain labetalol 10mg IV given in ED started lisinopril 5mg daily monitor Anemia hgb borderline low at 13.5 anemia panel- B12 313 wnl, folic acid 19.2, iron 40 wnl, transferrin 154, ferritin 391 DVT ppx: encourage ambulation FULL CODE PCP: Pt needs to establish with PCP @ [facility] Dispo:med tele, likely to remain hospitalized 1-2 days Admission and Anticipated Discharge Date Admission Date: November 29, 2023 Subjective Pt seen in follow up of helen-rectal abscess s/p I&D Diabetic, uncontrolled - elevated Hgb A1c Needs to establish w/ PCP Currently sitting up in bed, in no acute distress No fevers, chills, chest pain, shortness of breath No abd. pain, n/v Review of Systems Review of Systems: All systems reviewed & are unremarkable except as noted in Subjective Physical Exam Physical Exam: Constitutional: WD/WN, young M in NAD Head: Normocephalic, Atraumatic Eyes: PERRL, conjunctivae normal, anicteric sclerae ENMT: external ear and nose normal, oropharynx normal Neck: normal visual inspection Respiratory: normal respiratory effort, lungs clear to auscultation, no wheeze, rales, rhonchi. Cardiovascular: RRR, no murmur, no edema Chest: normal inspection of chest Abdomen: + bowel sounds, soft, nontender Musculoskeletal: moves extremities Skin: no rashes, warm and dry normal turgor Neurologic: PERRL, EOMI, no face palsy, no dysarthria, moves all extremities Psychiatric: A+Ox3, euthymic affect Skin: warm , dry Results & Data Results & Data Vital Signs (Past 12 Hours) Vital Signs Temp Pulse Pulse Resp BP Pulse Ox O2 Del Method 11/30/23 04:09 36.8 C 86 20 158/95 H 97 Room Air 11/30/23 00:03 37.0 C 84 20 141/76 H 98 Room Air 11/29/23 23:00 86 11/29/23 23:00 86 11/29/23 20:14 37.1 C 96 H 20 152/84 H 98 Room Air Laboratory Results 11/29/23 11/29/23 11/29/23 Range/Units Unknown 20:30 16:47 POC Glucose 202 H 268 H (70-99) mg/dl Lactate (0.4-2.0) mmol/L Procalcitonin (0-0.5) ng/ml Urine Color Urine Appearance (Clear) Urine pH (4.5-7.5) Ur Specific [place] (1.000-1.030) Urine Protein (Negative) Urine Glucose (UA) (Negative) Urine Ketones (Negative) Urine Blood (Negative) Urine Nitrite (Negative) Urine Bilirubin (Negative) Urine Urobilinogen (Negative) Ur Leukocyte Esterase (Negative) Urine WBC (Auto) (0-5) /hpf Urine RBC (Auto) (0-4) /hpf U Hyaline Cast (Auto) (0-5) /lpf U Epithel Cells (Auto) (0-5) /lpf Urine Bacteria (Auto) (Negative) Nasal Screen MRSA (PCR) Negative (Negative) 01/17/24 01/17/24 01/17/24 Range/Units 15:10 13:14 08:20 POC Glucose 263 H 265 H (70-99) mg/dl Lactate (0.4-2.0) mmol/L Procalcitonin (0-0.5) ng/ml Urine Color Yellow Urine Appearance Clear (Clear) Urine pH 6.0 (4.5-7.5) Ur Specific [place] 1.044 H (1.000-1.030) Urine Protein 1+ H (Negative) Urine Glucose (UA) 3+ H (Negative) Urine Ketones 2+ H (Negative) Urine Blood 1+ H (Negative) Urine Nitrite Negative (Negative) Urine Bilirubin Negative (Negative) Urine Urobilinogen Negative (Negative) Ur Leukocyte Esterase Negative (Negative) Urine WBC (Auto) 1-5 (0-5) /hpf Urine RBC (Auto) 0-4 (0-4) /hpf U Hyaline Cast (Auto) 0 (0-5) /lpf U Epithel Cells (Auto) 5-10 H (0-5) /lpf Urine Bacteria (Auto) Negative (Negative) Nasal Screen MRSA (PCR) (Negative) 11/29/23 11/29/23 Range/Units 07:10 07:06 POC Glucose (70-99) mg/dl Lactate 1.3 (0.4-2.0) mmol/L Procalcitonin < 0.05 (0-0.5) ng/ml Urine Color Urine Appearance (Clear) Urine pH (4.5-7.5) Ur Specific [place] (1.000-1.030) Urine Protein (Negative) Urine Glucose (UA) (Negative) Urine Ketones (Negative) Urine Blood (Negative) Urine Nitrite (Negative) Urine Bilirubin (Negative) Urine Urobilinogen (Negative) Ur Leukocyte Esterase (Negative) Urine WBC (Auto) (0-5) /hpf Urine RBC (Auto) (0-4) /hpf U Hyaline Cast (Auto) (0-5) /lpf U Epithel Cells (Auto) (0-5) /lpf Urine Bacteria (Auto) (Negative) Nasal Screen MRSA (PCR) (Negative) Medications Administered Current Inpatient Medications Acetaminophen (Acetaminophen 325 Mg Tab) 650 mg PO Q4H PRN PRN Reason: Pain or Fever Stop: 12/29/23 16:52 Al Hydrox/Mg Hydrox/Simethicone (Aluminum/Magnesium Susp 30 Ml Udc) 15 ml PO Q4H PRN PRN Reason: Dyspepsia Stop: 12/29/23 16:52 Dextrose (Dextrose 50% 50 Ml Syringe) 25 - 50 ml IV UD PRN; Protocol PRN Reason: Hypoglycemia Protocol Stop: 12/29/23 16:52 Glucagon (Glucagon For Inj 1 Mg Vial) 1 mg SQ UD PRN; Protocol PRN Reason: Hypoglycemia Protocol Stop: 12/29/23 16:52 Glucose (Glucose 10 Tab/Tube) 4 - 8 tab PO UD PRN; Protocol PRN Reason: Hypoglycemia Treatment Stop: 12/29/23 16:52 Glucose (Glucose 40% Gel 15 Gm Tube) 15 - 30 gm PO UD PRN; Protocol PRN Reason: Hypoglycemia Protocol Stop: 12/29/23 16:52 Metronidazole (Flagyl) 500 mg in 100 mls @ 100 mls/hr IV Q8H ABHIJIT; Protocol Stop: 12/06/23 16:59 Last Infusion: 11/30/23 02:23 Dose: Infused Ciprofloxacin (Cipro / D5w) 400 mg in 200 mls @ 100 mls/hr IV Q12H ABHIJIT; Protocol Stop: 12/06/23 21:59 Last Infusion: 11/30/23 00:03 Dose: Infused Lactated Ringer's (Lr) 1,000 mls @ 80 mls/hr IV .[id number] ABHIJIT Stop: 11/30/23 07:29 Last Infusion: 11/30/23 06:20 Dose: Infused Insulin Aspart (Insulin Aspart Per Unit Charge) 0 units SC ACHS [facility]; Protocol Stop: 12/29/23 17:14 Last Admin: 11/29/23 21:41 Dose: 3 units Insulin Glargine (Lantus Per Unit Charge) 0 - 14 units SQ BID ABHIJIT; Protocol Stop: 12/29/23 17:14 Last Admin: 11/29/23 17:59 Dose: 14 units Lisinopril (Lisinopril 5 Mg Tab) 5 mg PO QAM ABHIJIT Stop: 12/30/23 08:59 Magnesium Hydroxide (Magnesium Hydroxide Susp 30 Ml Udc) 30 ml PO Q12H PRN PRN Reason: Constipation Stop: 12/29/23 16:52 Miscellaneous (Carbohydrates For Hypoglycemia ) 15 - 30 gm PO UD PRN PRN Reason: Hypoglycemia Protocol Stop: 12/29/23 16:52 Miscellaneous Information (Pharmacy Glycemic Mgmt Consult) 1 each N/A UD PRN PRN Reason: Consult Stop: 12/29/23 16:52 Ondansetron HCl (Ondansetron Inj 2 Mg/Ml 2 Ml Vial) 4 mg IV Q6H PRN PRN Reason: Nausea Stop: 12/29/23 16:52 Polyethylene Glycol (Polyethylene (Miralax) 17 Gm Pack) 17 gm PO DAILY PRN PRN Reason: Constipation Stop: 12/29/23 16:52 Saccharomyces Boulardii (Saccharomyces Boulardii 250 Mg Cap) 250 mg PO DAILY [facility] Stop: 12/29/23 16:52 Last Admin: 11/29/23 17:33 Dose: 250 mg
[2023-11-30 07:47] LABS: Estimated Average Glucose 295 mg/dl; Hemoglobin A1C 11.9 % (4.5-5.6)
[2023-11-30 07:49] LABS: Basophils # (auto) 0.04 K/uL (0.00-0.20); Basophils % (auto) 0.4 %; Eosinophils # (auto) 0.35 K/uL (0.00-0.50); Eosinophils % (auto) 3.7 %; Hematocrit (blood only) 33.7 % (42.0-52.0); Hemoglobin 11.6 g/dl (14.0-18.0); Immature Granulocytes # (auto) 0.06 K/uL (0.01-0.20); Immature Granulocytes % (auto) 0.6 %; Lymphocytes # (auto) 2.12 K/uL (1.20-3.40); Lymphocytes % (auto) 22.4 %; Mean Corpuscular Hemoglobin 28.8 pg (25.0-34.0); Mean Corpuscular Hgb Conc 34.4 g/dL (32.0-36.0); Mean Corpuscular Volume 83.6 fL (80.0-100.0); Mean Platelet Volume 9.7 fL (9.4-12.4); Monocytes # (auto) 0.99 K/uL (0.11-0.59); Monocytes % (auto) 10.5 %; Neutrophils % (auto) 62.4 %; Platelet Count 296 K/uL (130-400); RDW Coefficient of Variation 11.6 % (11.5-14.5); RDW Standard Deviation 35.6 fL (36.4-46.3); Red Blood Count 4.03 M/uL (4.70-6.10); White Blood Count 9.46 K/ul (4.8-10.8)
[2023-11-30 08:22] LABS: Albumin Globulin Ratio 1.1 (0.9-2); Albumin Level 3.2 gm/dl (3.4-5.0); BUN Creatinine Ratio 13.1 (10-20); Bilirubin,Total 0.3 mg/dl (0.2-1.0); Calcium 8.3 mg/dl (8.6-10.3); Chol HDL Ratio 3.4 (0-5); Creatinine Clr Calc Pharmacy 118.3 ml/min; Est GFR (African American) 122.6 ml/min; Est GFR (Non-African American) 105.7 ml/min; Magnesium 1.8 mg/dl (1.7-2.4); Potassium 3.9 mmol/L (3.5-5.1); Total Protein 6.2 gm/dl (6.0-8.3)
[2023-11-30 08:37] LABS: Ferritin 391.1 ng/ml (8-388)
[2023-11-30 08:38] LABS: Folate (Folic Acid),Ser orPlas 19.24 ng/ml (>5.38)
[2023-11-30] MEDS: INSULIN ASPART PER UNIT CHARGE SC SCH ×4 (08:48→21:38)
[2023-11-30] MEDS: CIPROFLOXACIN / D5W 400 MG/200 ML BAG IV SCH ×2 (08:49→21:40)
[2023-11-30] MEDS: LANTUS PER UNIT CHARGE SQ SCH ×2 (08:49→21:39)
[2023-11-30] MEDS: lisinopril 5 MG TAB PO SCH (08:50)
[2023-11-30] MEDS: SACCHAROMYCES BOULARDII 250 MG CAP PO SCH (08:50)
--- NOTE | 2023-11-30 12:51 | Surgery Progress Note ---
Date of Service November 30, 2023 Assessment & Plan (1) Kristin-rectal abscess: Plan: POD #1 s/p I&D of large perirectal abscess Doing well Will leave the dressing intact today Will remove the packing tomorrow 1 more day of IV antibiotics Probable discharge to home tomorrow Admission and Anticipated Discharge Date Admission Date: November 29, 2023 Subjective POD #1 s/p I&D of perirectal abscess Doing well. Minimal pain. Packing in place. Tolerating diet. No fevers or chills. No nausea. Physical Exam Physical Exam: NAD, & O x 3 AFVSS Abdomen: Soft, nontender Dressing clean, dry and intact Results & Data Vital Signs (Past 12 Hours) Vital Signs Temp Pulse Pulse Resp BP Pulse Ox O2 Del Method 11/30/23 11:35 37.1 C 91 H 18 155/88 H 96 Room Air 11/30/23 11:30 78 11/30/23 08:00 36.6 C 18 161/88 H 99 Room Air 11/30/23 04:09 36.8 C 86 20 158/95 H 97 Room Air Laboratory Results 11/30/23 11/30/23 11/30/23 Range/Units 12:20 08:13 06:29 WBC 9.46 (4.8-10.8) K/ul RBC 4.03 L (4.70-6.10) M/uL Hgb 11.6 L (14.0-18.0) g/dl Hct 33.7 L (42.0-52.0) % MCV 83.6 (80.0-100.0) fL MCH 28.8 (25.0-34.0) pg MCHC 34.4 (32.0-36.0) g/dL RDW Std Deviation 35.6 L (36.4-46.3) fL RDW Coeff of Rob 11.6 (11.5-14.5) % Plt Count 296 (130-400) K/uL MPV 9.7 (9.4-12.4) fL Immature Gran % (Auto) 0.6 % Neut % (Auto) 62.4 % Lymph % (Auto) 22.4 % Ada % (Auto) 10.5 % Eos % (Auto) 3.7 % Baso % (Auto) 0.4 % Neut # (Auto) 5.90 (1.40-6.50) K/uL Lymph # (Auto) 2.12 (1.20-3.40) K/uL Ada # (Auto) 0.99 H (0.11-0.59) K/uL Eos # (Auto) 0.35 (0.00-0.50) K/uL Baso # (Auto) 0.04 (0.00-0.20) K/uL Immature Gran # (Auto) 0.06 (0.01-0.20) K/uL Sodium 137 (136-145) mmol/L Potassium 3.9 (3.5-5.1) mmol/L Chloride 101 (98-107) mmol/L Carbon Dioxide 31 (21-32) mmol/L Anion Gap 5 (3-11) BUN 11 (6-23) mg/dl Creatinine 0.84 (0.6-1.4) mg/dl Est Cr Clr Drug Dosing 118.3 ml/min Est GFR ( Amer) 122.6 ml/min Est GFR (Non-Af Amer) 105.7 ml/min BUN/Creatinine Ratio 13.1 (10-20) Glucose 133 H (70-99(Fasting)) mg/dl POC Glucose 230 H 161 H (70-99) mg/dl Estimat Average Glucose 295 mg/dl Hemoglobin A1c 11.9 H (4.5-5.6) % Calcium 8.3 L (8.6-10.3) mg/dl Magnesium 1.8 (1.7-2.4) mg/dl Iron 40 (35-175) mcg/dl Transferrin 154 L (200-360) mg/dl Ferritin 391.1 H (8-388) ng/ml Total Bilirubin 0.3 (0.2-1.0) mg/dl AST 10 L (13-39) U/L ALT 9 (7-52) U/L Alkaline Phosphatase 89 (34-104) U/L Total Protein 6.2 D (6.0-8.3) gm/dl Albumin 3.2 L (3.4-5.0) gm/dl Globulin 3.0 (2.5-4.0) gm/dl Albumin/Globulin Ratio 1.1 (0.9-2) Triglycerides 64 (0-150) mg/dl Cholesterol 150 (0-200) mg/dl LDL Cholesterol, Calc 93 mg/dl VLDL Cholesterol, Calc 13 (0-30) mg/dl HDL Cholesterol 44 mg/dl Cholesterol/HDL Ratio 3.4 (0-5) Vitamin B12 313 (180-914) pg/ml Folate 19.24 (>5.38) ng/ml Urine Color Urine Appearance (Clear) Urine pH (4.5-7.5) Ur Specific [place] (1.000-1.030) Urine Protein (Negative) Urine Glucose (UA) (Negative) Urine Ketones (Negative) Urine Blood (Negative) Urine Nitrite (Negative) Urine Bilirubin (Negative) Urine Urobilinogen (Negative) Ur Leukocyte Esterase (Negative) Urine WBC (Auto) (0-5) /hpf Urine RBC (Auto) (0-4) /hpf U Hyaline Cast (Auto) (0-5) /lpf U Epithel Cells (Auto) (0-5) /lpf Urine Bacteria (Auto) (Negative) Nasal Screen MRSA (PCR) (Negative) 11/29/23 11/29/23 11/29/23 Range/Units Unknown 20:30 16:47 WBC (4.8-10.8) K/ul RBC (4.70-6.10) M/uL Hgb (14.0-18.0) g/dl Hct (42.0-52.0) % MCV (80.0-100.0) fL MCH (25.0-34.0) pg MCHC (32.0-36.0) g/dL RDW Std Deviation (36.4-46.3) fL RDW Coeff of Rob (11.5-14.5) % Plt Count (130-400) K/uL MPV (9.4-12.4) fL Immature Gran % (Auto) % Neut % (Auto) % Lymph % (Auto) % Ada % (Auto) % Eos % (Auto) % Baso % (Auto) % Neut # (Auto) (1.40-6.50) K/uL Lymph # (Auto) (1.20-3.40) K/uL Ada # (Auto) (0.11-0.59) K/uL Eos # (Auto) (0.00-0.50) K/uL Baso # (Auto) (0.00-0.20) K/uL Immature Gran # (Auto) (0.01-0.20) K/uL Sodium (136-145) mmol/L Potassium (3.5-5.1) mmol/L Chloride (98-107) mmol/L Carbon Dioxide (21-32) mmol/L Anion Gap (3-11) BUN (6-23) mg/dl Creatinine (0.6-1.4) mg/dl Est Cr Clr Drug Dosing ml/min Est GFR ( Amer) ml/min Est GFR (Non-Af Amer) ml/min BUN/Creatinine Ratio (10-20) Glucose (70-99(Fasting)) mg/dl POC Glucose 202 H 268 H (70-99) mg/dl Estimat Average Glucose mg/dl Hemoglobin A1c (4.5-5.6) % Calcium (8.6-10.3) mg/dl Magnesium (1.7-2.4) mg/dl Iron (35-175) mcg/dl Transferrin (200-360) mg/dl Ferritin (8-388) ng/ml Total Bilirubin (0.2-1.0) mg/dl AST (13-39) U/L ALT (7-52) U/L Alkaline Phosphatase (34-104) U/L Total Protein (6.0-8.3) gm/dl Albumin (3.4-5.0) gm/dl Globulin (2.5-4.0) gm/dl Albumin/Globulin Ratio (0.9-2) Triglycerides (0-150) mg/dl Cholesterol (0-200) mg/dl LDL Cholesterol, Calc mg/dl VLDL Cholesterol, Calc (0-30) mg/dl HDL Cholesterol mg/dl Cholesterol/HDL Ratio (0-5) Vitamin B12 (180-914) pg/ml Folate (>5.38) ng/ml Urine Color Urine Appearance (Clear) Urine pH (4.5-7.5) Ur Specific [place] (1.000-1.030) Urine Protein (Negative) Urine Glucose (UA) (Negative) Urine Ketones (Negative) Urine Blood (Negative) Urine Nitrite (Negative) Urine Bilirubin (Negative) Urine Urobilinogen (Negative) Ur Leukocyte Esterase (Negative) Urine WBC (Auto) (0-5) /hpf Urine RBC (Auto) (0-4) /hpf U Hyaline Cast (Auto) (0-5) /lpf U Epithel Cells (Auto) (0-5) /lpf Urine Bacteria (Auto) (Negative) Nasal Screen MRSA (PCR) Negative (Negative) 11/29/23 11/29/23 11/29/23 Range/Units 15:10 13:14 08:20 WBC (4.8-10.8) K/ul RBC (4.70-6.10) M/uL Hgb (14.0-18.0) g/dl Hct (42.0-52.0) % MCV (80.0-100.0) fL MCH (25.0-34.0) pg MCHC (32.0-36.0) g/dL RDW Std Deviation (36.4-46.3) fL RDW Coeff of Rob (11.5-14.5) % Plt Count (130-400) K/uL MPV (9.4-12.4) fL Immature Gran % (Auto) % Neut % (Auto) % Lymph % (Auto) % Ada % (Auto) % Eos % (Auto) % Baso % (Auto) % Neut # (Auto) (1.40-6.50) K/uL Lymph # (Auto) (1.20-3.40) K/uL [place] # (Auto) (0.11-0.59) K/uL Eos # (Auto) (0.00-0.50) K/uL Baso # (Auto) (0.00-0.20) K/uL Immature Gran # (Auto) (0.01-0.20) K/uL Sodium (136-145) mmol/L Potassium (3.5-5.1) mmol/L Chloride (98-107) mmol/L Carbon Dioxide (21-32) mmol/L Anion Gap (3-11) BUN (6-23) mg/dl Creatinine (0.6-1.4) mg/dl Est Cr Clr Drug Dosing ml/min Est GFR ( Amer) ml/min Est GFR (Non-Af Amer) ml/min BUN/Creatinine Ratio (10-20) Glucose (70-99(Fasting)) mg/dl POC Glucose 263 H 265 H (70-99) mg/dl Estimat Average Glucose mg/dl Hemoglobin A1c (4.5-5.6) % Calcium (8.6-10.3) mg/dl Magnesium (1.7-2.4) mg/dl Iron (35-175) mcg/dl Transferrin (200-360) mg/dl Ferritin (8-388) ng/ml Total Bilirubin (0.2-1.0) mg/dl AST (13-39) U/L ALT (7-52) U/L Alkaline Phosphatase (34-104) U/L Total Protein (6.0-8.3) gm/dl Albumin (3.4-5.0) gm/dl Globulin (2.5-4.0) gm/dl Albumin/Globulin Ratio (0.9-2) Triglycerides (0-150) mg/dl Cholesterol (0-200) mg/dl LDL Cholesterol, Calc mg/dl VLDL Cholesterol, Calc (0-30) mg/dl HDL Cholesterol mg/dl Cholesterol/HDL Ratio (0-5) Vitamin B12 (180-914) pg/ml Folate (>5.38) ng/ml Urine Color Yellow Urine Appearance Clear (Clear) Urine pH 6.0 (4.5-7.5) Ur Specific [place] 1.044 H (1.000-1.030) Urine Protein 1+ H (Negative) Urine Glucose (UA) 3+ H (Negative) Urine Ketones 2+ H (Negative) Urine Blood 1+ H (Negative) Urine Nitrite Negative (Negative) Urine Bilirubin Negative (Negative) Urine Urobilinogen Negative (Negative) Ur Leukocyte Esterase Negative (Negative) Urine WBC (Auto) 1-5 (0-5) /hpf Urine RBC (Auto) 0-4 (0-4) /hpf U Hyaline Cast (Auto) 0 (0-5) /lpf U Epithel Cells (Auto) 5-10 H (0-5) /lpf Urine Bacteria (Auto) Negative (Negative) Nasal Screen MRSA (PCR) (Negative)
[2023-12-01] MEDS: metroNIDAZOLE 500 MG/100 ML BAG IV SCH ×2 (01:57→09:49)
--- NOTE | 2023-12-01 07:07 | Surgery Progress Note ---
Date of Service December 01, 2023 Assessment & Plan (1) Kristin-rectal abscess: Plan: POD #2 s/p I&D of large perirectal abscess Doing well Packing removed, dressing replaced May discharge to home today if stable from medical service Follow-up in clinic in 1 to 2 weeks Admission and Anticipated Discharge Date Admission Date: November 29, 2023 Subjective POD #2 s/p I&D of perirectal abscess Doing well. Minimal pain. Packing in place. Tolerating diet. No fevers or chills. No nausea. Physical Exam Physical Exam: NAD, & O x 3 AFVSS Abdomen: Soft, nontender Packing removed and replaced with dry dressing Significant decrease in induration around abscess site Results & Data Vital Signs (Past 12 Hours) Vital Signs Temp Pulse Pulse Resp BP Pulse Ox O2 Del Method 12/01/23 04:06 36.7 C 87 20 164/94 H 99 Room Air 12/01/23 01:22 36.9 C 88 20 151/81 H 96 Room Air 11/30/23 23:00 86 11/30/23 20:39 36.4 C L 90 20 162/90 H 98 Room Air
[2023-12-01 07:32] LABS: Hematocrit (blood only) 35.6 % (42.0-52.0); Hemoglobin 12.3 g/dl (14.0-18.0); Mean Corpuscular Hemoglobin 28.8 pg (25.0-34.0); Mean Corpuscular Hgb Conc 34.6 g/dL (32.0-36.0); Mean Corpuscular Volume 83.4 fL (80.0-100.0); Mean Platelet Volume 9.1 fL (9.4-12.4); Platelet Count 315 K/uL (130-400); RDW Coefficient of Variation 11.7 % (11.5-14.5); RDW Standard Deviation 35.2 fL (36.4-46.3); Red Blood Count 4.27 M/uL (4.70-6.10); White Blood Count 8.01 K/ul (4.8-10.8)
[2023-12-01 08:03] LABS: BUN Creatinine Ratio 14.8 (10-20); Calcium 8.4 mg/dl (8.6-10.3); Creatinine Clr Calc Pharmacy 112.9 ml/min; Est GFR (African American) 120.2 ml/min; Est GFR (Non-African American) 103.7 ml/min; Magnesium 1.8 mg/dl (1.7-2.4); Phosphorus 3.4 mg/dl (2.5-4.9); Potassium 3.8 mmol/L (3.5-5.1)
[2023-12-01] MEDS ORDERED: LANTUS PER UNIT CHARGE SC SCH (09:00)
--- NOTE | 2023-12-01 09:30 | Discharge Summary ---
Date of Service December 01, 2023 Admission HPI Per Admitting Provider This is a 43-year-old male who has significant past medical history of T2DM who presents to ED secondary to rectal abscess x 5 days. He has not seen a primary care provider in the last 5 years. He states he was diagnosed with borderline diabetes back in 2014. At that point he was placed on Farxiga and later on he was switched over to Jardiance for insurance purposes. He has been without medication since 2019 secondary to lack of insurance. He recently has insurance and is scheduled to see primary care provider at [facility] in the near future. He states approximately 1 week ago he started to notice a pimple/lump in the right side of his rectal area. This lump continued to grow, get larger and more painful. 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 He has been putting gauze back there since then that is been frequently getting saturated. He states the fluid is clear and odorless. Due to the persistence of symptoms he opted to come to ED for further evaluation. He denies ever having anything like this in the past. He denies any fever, chills, sweats, lightheadedness, dizziness, chest pain, shortness of breath, nausea, vomiting or abdominal pain. His appetite has otherwise been stable. He has had nothing to eat or drink today. He does not take any medications on a regular basis. He also has never had any surgeries in the past. 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 Admission Exam Per Admitting Provider Constitutional: WD/WN, vitals as above, NAD, sitting up in bed, pleasant, conversing easily Head: Normocephalic, Atraumatic Eyes: PERRL, conjunctivae normal, anicteric sclerae ENMT: external ear and nose normal, oropharynx normal Neck: trachea midline, no thyromegaly normal visual inspection Respiratory: normal respiratory effort, lungs clear to auscultation, no wheeze, rales, rhonchi. Normal insp/exp effort, no accessory muscle use Cardiovascular: RRR, no murmur, no edema Vessels: no JVD or carotid bruit Chest: normal inspection of chest Abdomen: Protuberant abdomen normal bowel sounds, soft, nontender, no hepatosplenomegaly Musculoskeletal: no cyanosis or clubbing, extremities motor strength 5/5 Skin: no rashes, warm and dry normal turgor Neurologic: PERRL, EOMI, accommodation nl, no face palsy, no dysarthria CN's II-XI intact bilaterally and moves all extremities Psychiatric: A+Ox3, euthymic affect Lymphatic: no cervical or axillary lymphadenopathy : Red, warm and indurated area of erythema on the left buttock extending to base of penis with central area that is draining Principal Diagnosis Perirectal abscess s/p I&D Hyperglycemia, uncontrolled diabetes mellitus type 2 Hypertension Discharge Exam Constitutional: WD/WN, young M in NAD Head: Normocephalic, Atraumatic Eyes: PERRL, conjunctivae normal, anicteric sclerae ENMT: external ear and nose normal, oropharynx normal Neck: normal visual inspection Respiratory: normal respiratory effort, lungs clear to auscultation, no wheeze, rales, rhonchi. Cardiovascular: RRR, no murmur, no edema Chest: normal inspection of chest Abdomen: + bowel sounds, soft, nontender Musculoskeletal: moves extremities Skin: no rashes, warm and dry normal turgor Neurologic: PERRL, EOMI, no face palsy, no dysarthria, moves all extremities Psychiatric: A+Ox3, euthymic affect Skin: warm , dry Discharge Data Allergies Allergy/AdvReac Type Severity Reaction Status Date / Time No Known Allergies Allergy Verified 11/29/23 05:06 Consultations 11/29/23 08:21 ED Decision to Admit Stat 11/29/23 08:26 Consult General Surgery Routine Procedures Performed Operation Date: 11/29/23 08:05 Actual Procedures p Incision and Drainage Perirectal Abscess - Cesar Sellers MD Ordered Studies 11/29/23 04:33 CT Abd and Pelvis [CT abd pelvis IV con only] Stat FINDINGS: The lung bases are clear. No pneumoperitoneum. No pneumatosis. No acute fractures identified. The liver, gallbladder, pancreas, spleen, adrenal glands, and kidneys are unremarkable. No hydronephrosis. The main portal vein is patent. No retroperitoneal lymphadenopathy. Normal caliber abdominal aorta. No pelvic lymphadenopathy or pelvic free fluid. There is mild left inguinal lymphadenopathy which may be reactive. Trace bilateral hydroceles are noted. Mild bladder wall thickening for the degree of distention. The prostate gland is mildly enlarged. A few colonic diverticula. No evidence for acute diverticulitis. [id number] fecal retention. No bowel wall thickening or obstruction. Normal appendix. Skin thickening and subcutaneous fat stranding within the left perianal location consistent with a cellulitis. There is an ill- defined focus of subcutaneous fluid/edema within the left perianal location best seen on image 422 which measures 5.9 x 1.5 cm. This is not completely loculated and therefore favors a phlegmon/developing abscess. No evidence for supralevator extension. IMPRESSION: 1. Skin thickening and subcutaneous fat stranding within the left perianal location consistent with a cellulitis. There is an ill-defined focus of subcutaneous fluid/edema within the left perianal location best seen on image 422 which measures 5.9 x 1.5 cm. This is not completely loculated and therefore favors a phlegmon/developing abscess. No evidence for supralevator extension. 2. Mild left inguinal lymphadenopathy. This is likely reactive. 3. Mild bladder wall thickening. This could be due to chronic outlet obstruction. Recommend correlation with urinalysis to exclude a cystitis. Hospital Course (1) Kristin-rectal abscess: (2) T2DM (type 2 diabetes mellitus): (3) HTN (hypertension): Plan 43-year-old male who has significant past medical history of T2DM who presents to ED secondary to rectal abscess x 5 days. He has not seen a primary care provider in the last 5 years. Perirectal abscess Admitted to [facility] telemetry secondary to uncontrolled blood pressure --CT a/p: Skin thickening and subcutaneous fat stranding within the left perianal location consistent with a cellulitis. There is an ill-defined focus of subcutaneous fluid/edema within the left perianal location best seen on image 422 which measures 5.9 x 1.5 cm. This is not completely loculated and therefore favors a phlegmon/developing abscess. No evidence for supralevator extension. Consulted general surgery - pt s/p I&D on 11/29/23 Continued IV antibiotic coverage with IV Cipro 40 mg every 12 hours and IV Flagyl 500 mg every 8 hours while inpt -> changed to PO Augmentin by surgery on discharge. Blood cultx - negat. for 48 hrs given gentle fluid Per surgery - 12/01/23 - Packing removed, dressing replaced[facility]up [facility] gen. surgery clinic in 1 to 2 weeks. T2DM, uncontrolled Current Hgb A1c 11.9% -previously on farxiga, then switched to jardiance for insurance purposes has been off meds since 2019 due to lack of insurance placed on lantus/novolog while hospitalized consulted diabetes educator will need close OP f/u - scheduled for 12/06/23 Farxiga prescribed on discharge. Glucose meter prescribed, pt was instructed to monitor blood sugar levels twice a day. HTN pt BP significantly elevated in ED, likely partially situational/pain labetalol 10mg IV given in ED started lisinopril 5mg daily- pt will continue on this medication on discharge as well monitor Anemia hgb borderline low at 13.5 anemia panel- B12 313 wnl, folic acid 19.2, iron 40 wnl, transferrin 154, ferritin 391 Follow up as outpt Total Time Total Time Spent Total Time Spent (In Minutes): 40 Discharge Plan Discharge Items Patient Disposition: Home - Self-Care Reason For Visit: KRISTIN RECTAL ABSCESS, HYPERGLYCEMIA Discharge Diagnosis: Perirectal abscess s/p I&D Hyperglycemia, uncontrolled diabetes mellitus type 2 Hypertension Activity: Per Instructions section Lifting: No more than 25 pounds Sexual Activity: Wait until after follow-up appointment Exercise/Sports: Wait until after follow-up appointment Non-emergency contact: Primary Care Provider Call non-emergency contact if: you have any medication questions, your symptoms worsen, your pain is not controlled, your pain is worsening, your pain is unusual for you, your temperature is above 101.5, your wound has increased redness, your wound has increased drainage and your wound pain has increased Follow-up/Referrals: Gustabo Murphy PA-C [Outside Practitioners] - 12/06/23 10:30 am Diet: Carb Consistent or DM2 Addtl Attending Provider Instructions: Follow up with primary care physician and general surgeon. The appointment with primary care provider was scheduled for you for 12/06/23. No packing necessary for wound Keep stools soft - OTC stool softener; plenty of water, fiber, Miralax if needed Sitz baths or shower twice a day and after every BM for 1 week You will need to follow up with surgery in 2 weeks (Cesar Sellers MD with [facility] surgery). Finish antibiotic treatment as prescribed. Take farxiga for your diabetes. Check your blood sugar level twice a day as instructed by the health educator. Follow up with your primary care physician as your medication regimen may need to be further adjusted. Take lisinopril for your blood pressure. If you can, monitor your blood pressure at home and discuss your numbers with your primary care doctor. Pending Studies at Discharge: Yes Studies:: final blood cultx results Stand-Alone Forms: My [facility] [employer], Smoking Cessation Medications and DC Order Prescriptions: New Farxiga 5 mg tablet 5 mg PO DAILY Qty: 30 0RF lisinopril [Zestril] 5 mg Tablet 5 mg PO QAM Qty: 30 0RF (DME) blood-glucose meter [Contour Next Meter] Misc See Rx Instructions .Route Qty: 1 0RF Rx Instructions: As directed (DME) Contour Next Test Strips Strip See Rx Instructions .Route Qty: 50 0RF Rx Instructions: As directed (DME) lancets [Microlet Lancet] Misc See Rx Instructions .Route Qty: 100 0RF Rx Instructions: As directed oxycodone-acetaminophen [Percocet] 5-325 mg tablet 1 tab PO Q6H PRN (Reason: pain) Qty: 10 0RF amoxicillin-pot clavulanate 875-125 mg tablet 1 tab PO BID Qty: 20 0RF polyethylene glycol 3350 [Miralax] 17 gram Powder In Packet 17 g PO DAILY PRN (Reason: constipation) Qty: 14 0RF Continued multivitamin [Multi-Vitamin] Tablet 1 tab PO DAILY Discharge Orders: Discharge Order (Routine); Ordered 12/01/23 Ordered By: Bernard Leonard Admission Data Admit Date/Time: 11/29/23 08:26 Attending Provider: Bernard Leonard Admit Provider: Lily Cardozo I. Primary Care Provider: Reid Buchanan Other Providers: Cesar Sellers; Lily Cardozo I.
[2023-12-01] MEDS ORDERED: oxyCODONE HCL IR 5 MG TAB (IMMEDIATE RELEASE) PO STA (09:31)
[2023-12-01] MEDS: SACCHAROMYCES BOULARDII 250 MG CAP PO SCH (09:48)
[2023-12-01] MEDS: INSULIN ASPART PER UNIT CHARGE SC SCH ×2 (09:48→13:57)
[2023-12-01] MEDS: lisinopril 5 MG TAB PO SCH (09:48)
[2023-12-01] MEDS: CIPROFLOXACIN / D5W 400 MG/200 ML BAG IV SCH (09:50)
== END 2023-12-01 16:36 | disposition home or self-care (01) | DRG 346 ==
LOC: ED 04:02 → EDINP 08:26 → SUATTDRO 08:26 → EDINP 12:52 → 2N 16:49